=== PATIENT | male | born 1970 | race Two or more races ===

== ENCOUNTER 2020-05-08 09:42 | Day surgery (SDC) | payer BC ==
[2020-05-08] VITALS (8 sets, daily range): BP systolic 100–113; BP diastolic 65–75
[~2020-05-08] VITALS: Ht 180.3 cm; Wt 81.6 kg
--- NOTE | 2020-05-08 09:27 | Anethesia Preoperative Eval ---
Anesthesia Pre-op PMH/ROS General Date of Evaluation: May 08, 2020 Time of Evaluation: 09:26 Anesthesiologist: arianna Mallampati Score Class I : Soft palate, uvula, fauces, pillars visible Class II: Soft palate, uvula, fauces visible Class III: Soft palate, base of uvula visible Class IV: Only hard plate visible Surgeon: yahir Diagnosis: colon screening Surgical Procedure: colonoscopy Anesthesia History: none Family History: no anesthesia problems Medications: see eMAR Patient NPO?: Yes Anesthesia Pre-op Phys. Exam Physician Exam Constitutional: NAD Neurologic: CN 2-12 intact Cardiovascular: RRR Respiratory: CTA Gastrointestinal: S/NT/ND Airway Exam Mallampati Score: Class II MO: limited Neck: flexible TMD: 2fb ROM: limited Anesthesia Pre-op A/P Labs Microbiology Date/Time Source Procedure Growth Status 05/05/20 10:54 Nasopharynx SARS-CoV-2 RdRp Gene Assay - Final Complete Risk Assessment & Plan Assessment: asa Plan: mac Status Change Before Surgery: No Pre-Antibiotics Drug: Ana Maria Washington MD May 08, 2020 09:27
[2020-05-08] MEDS ORDERED: fentaNYL 100 mcg/2 mL IV ONE (10:00)
[2020-05-08] MEDS ORDERED: Midazolam 2mg/2ml Inj ONE (10:00)
--- NOTE | 2020-05-08 10:07 | Pre-Procedure Note/Attestation ---
Pre-Procedure Note/Attestation Complete Prior to Procedure Planned Procedure: not applicable Procedure Narrative: esophagogastroduodenoscopy and colonoscopy Indications for Procedure Pre-Operative Diagnosis: screening colon, Chronic GERD Attestation I attest that I discussed the nature of the procedure; its benefits; risks and complications; and alternatives (and the risks and benefits of such alternatives), prior to the procedure, with the patient (or the patient's legal outside sales representative insurance). I attest that, if there was a reasonable possibility of needing a blood transfusion, the patient (or the patient's legal outside sales representative insurance) was given the [facility] standardized written summary, pursuant to the [place] Blood Safety Act ([place] Health and Safety Code # 1645, as amended). I attest that I re-evaluated the patient just prior to the surgery and that there has been no change in the patient's H&P, except as documented below: Antwan Crawford MD May 08, 2020 10:07
--- NOTE | 2020-05-08 10:08 | Short Stay Surgery H&P ---
History of Present Illness History of Present Illness Chief Complaint screening colon, chronic GERD HPI Derek Brewer is a 50 year old male who was admitted on for Colon Screening Patient History Allergies: Coded Allergies: No Known Allergies (Unverified , 05/08/20) Medication History No Active Prescriptions or Reported Meds Review of Systems Cardiovascular: Reports: no symptoms Respiratory: Reports: no symptoms Skeletal: Reports: no symptoms Gastrointestinal: Reports: peptic ulcer disease Genitourinary: Reports: no symptoms Neurologic: Reports: no symptoms Endocrine: Reports: no symptoms Hematologic: Reports: no symptoms Physical Exam Skin: normal HENT: normal Heart: normal Lungs: normal Abdomen: normal Extremities: normal Plan Plan of Care EGD and colonoscopy Attestation Are the patient's medical conditions optimized for surgery? Attestation Response: yes Antwan Crawford MD May 08, 2020 10:08
[2020-05-08] MEDS ORDERED: LR 1000ml ONE (11:00)
--- NOTE | 2020-05-08 11:08 | Anethesia Preoperative Eval ---
Anesthesia Pre-op PMH/ROS General Date of Evaluation: May 08, 2020 Time of Evaluation: 10:58 Anesthesiologist: Miguel ASA Score: ASA 2 Mallampati Score Class I : Soft palate, uvula, fauces, pillars visible Class II: Soft palate, uvula, fauces visible Class III: Soft palate, base of uvula visible Class IV: Only hard plate visible Mallampati Classification: Class II Surgeon: Ty Diagnosis: Colon CA screening Surgical Procedure: Colonoscopy Anesthesia History: none Family History: no anesthesia problems Allergies: Coded Allergies: No Known Allergies (Unverified , 05/08/20) Medications: see eMAR Patient NPO?: Yes Past Medical History Cardiovascular: Denies: HTN, CAD, [place], valve dz, arrhythmia, other Pulmonary: Denies: asthma, COPD, HANSEL, other Gastrointestinal/Genitourinary: Reports: GERD - mild; Denies: CRI, ESRD, other Neurologic/Psychiatric: Denies: dementia, CVA, depression/anxiety, TIA, other Endocrine: Denies: DM, hypothyroidism, steroids, other HEENT: Denies: cataract (L), cataract (R), glaucoma, G[place] (L), G[place] (R), other Hematology/Immune: Denies: anemia, DVT, bleeding disorder, other Musculoskeletal/Integumentary: Denies: OA, RA, DJD, DDD, edema, other PMH Narrative: as above PSxH Narrative: Hernia repair Anesthesia Pre-op Phys. Exam Physician Exam Last Vital Signs Date Time Temp Pulse Resp B/P (MAP) Pulse Ox O2 Delivery O2 Flow Rate FiO2 05/08/20 10:08 96.2 66 18 113/73 98 Room Air Constitutional: NAD Neurologic: CN 2-12 intact Cardiovascular: RRR, no M/R/G Respiratory: CTA Gastrointestinal: S/NT/ND Airway Exam Mallampati Score: Class II MO: full Neck: flexible ROM: full Teeth: intact Dentures: no upper, no lower Anesthesia Pre-op A/P Studies Pre-op Studies: EKG - NSR Risk Assessment & Plan Assessment: ASA 2 Plan: MAC Status Change Before Surgery: Micah Brito MD May 08, 2020 11:08
[2020-05-08] MEDS ORDERED: fentaNYL 100 mcg/2 mL IV PRN (11:15)
[2020-05-08] MEDS ORDERED: LR 1000ml 1,000 ML IVLG SCH (11:15)
--- NOTE | 2020-05-08 11:25 | Endoscopy Procedure Note ---
Endoscopy Procedure Note General Indication for Procedure: screenig Procedures Performed: colonoscopy Operative Findings/Diagnosis: hemorrhois Specimen: yes Pt Tolerated Procedure Well: Yes Estimated Blood Loss: none Anesthesia Anesthesiologist: janet Anesthesia: MAC Inserted Devices Implant(s) used?: No Quality Quality of Bowel Preparation: Good Did scope reach the cecum?: Yes Was there any complications?: No GI Core Measures 50 yrs or older w/o bx or poly: No 10yrs. F/U recommended: Yes If not recommended, why?: Above average risk 18 years or older w/prev. colo: No Antwan Crawford MD May 08, 2020 11:25
--- NOTE | 2020-05-08 11:32 | Immediate Post-Op Evaluation ---
Immediate Post-Op Evalulation Immediate Post-Op Evalulation Procedure: Colonoscopy Date of Evaluation: May 08, 2020 Time of Evaluation: 11:31 IV Fluids: 600 Blood Products: none Estimated Blood Loss: none Urinary Output: none Blood Pressure Systolic: 104 Blood Pressure Diastolic: 64 Pulse Rate: 58 Respiratory Rate: 18 O2 Sat by Pulse Oximetry: 99 Temperature (Fahrenheit): 97.8 Pain Score (1-10): 1 Nausea: No Vomiting: No Complications none Patient Status: reacts, patent, none Hydration Status: adequate Micah Rivera MD May 08, 2020 11:32
--- NOTE | 2020-05-08 11:43 | 48 Hour Post Anesthesia Eval ---
Post Anesthesia Evaluation Procedure: Colonoscopy Date of Evaluation: May 08, 2020 Time of Evaluation: 11:42 Blood Pressure Systolic: 108 0: 56 Pulse Rate: 60 Respiratory Rate: 20 Temperature (Fahrenheit): 97.5 O2 Sat by Pulse Oximetry: 98 Airway: patent Nausea: No Vomiting: No Pain Intensity: 1 Hydration Status: adequate Cardiopulmonary Status: stable Mental Status/LOC: patient returned to baseline Follow-up Care/Observations: n/a Post-Anesthesia Complications: none Follow-up care needed: ready to discharge Micah Rivera MD May 08, 2020 11:43
--- NOTE | 2020-05-08 17:15 | Procedure Note ---
DATE OF PROCEDURE: 05/08/2020 ENDOSCOPIST: Antwan Crawford M.D. ANESTHESIOLOGIST: Micah Rivera M.D. PROCEDURE PERFORMED: Colonoscopy with biopsy. INSTRUMENT USED: Olympus adult flexible colonoscope. INDICATIONS FOR PROCEDURE: Screening colonoscopic evaluation. The procedure, risks, benefits, and possible consequences, including hemorrhage, aspiration, perforation and infection, and alternative treatments, were explained to the patient/legal guardian by Dr. Antwan Crawford and the patient/legal guardian understood and accepted these risks. DESCRIPTION OF PROCEDURE: After informed consent was obtained and the patient was adequately sedated, a rectal examination was performed, which was positive for internal hemorrhoids. Then, the scope was advanced into the rectum to the cecum and subsequently terminal ileum. Quality of prep was good. The patient had some polypoid-looking terminal ileum, had some prominent polyp in the proximal opening of the cecum into the terminal ileum. Biopsy from this area was obtained. The rest of the examination was grossly within normal limits. No obvious mass, polyp, or any pathology was seen. Retroflexion maneuver in the rectum showed evidence of internal hemorrhoids. SUMMARY OF FINDINGS: 1. Prominent polyps in the terminal ileum, status post biopsy. 2. Otherwise normal colonoscopic examination. 3. Internal hemorrhoids. RECOMMENDATIONS: Follow up biopsy results and treat accordingly. Antwan Crawford M.D. DR: REG JOB#: [id number] CC:
== END 2020-05-08 12:45 | disposition home or self-care (01) ==
LOC: GAS 09:42
DX: Z12.11 Encounter for screening for malignant neoplasm of colon (principal); K63.5 Polyp of colon; K64.8 Other hemorrhoids; K27.9 Peptic ulcer, site unspecified, unspecified as acute or chronic, without hemorrhage or perforation
CPT/HCPCS: 45380; 93005; 94003; J2250; J2704; J3010; J7120; U0002; 94150